=== PATIENT | female | born 1970 | race Caucasian/White ===

== ENCOUNTER 2018-11-17 10:09 | Outpatient (CLI) | payer MEDICAID, SELFPAY ==
--- NOTE | 2018-11-17 10:19 | DI.RAD_ITS ---
SYMPTOMS/DIAGNOSIS: COUGH, R05 PA AND LATERAL CHEST: The heart is normal in size. The lungs are clear. The mediastinal structures and pleura appear intact. CONCLUSION: Normal chest.
== END 2018-11-17 10:29 ==
PROVIDERS: PCP Physician Assistant Medical; Visit Provider Physician Assistant Medical
DX: R05 Cough (principal)
CPT/HCPCS: 71046

== ENCOUNTER 2020-02-15 10:12 | Outpatient (REF) | payer BC, SELFPAY | END 2020-02-15 10:32 | LOC: NCHCN 10:12 | PROVIDERS: PCP Physician Assistant Medical; Visit Provider Nurse Practitioner Family | DX: N39.0 Urinary tract infection, site not specified (principal) | CPT/HCPCS: 87077; 87086; 87186 ==

== ENCOUNTER 2023-04-01 15:23 | Outpatient (REF) | payer BC, SELFPAY ==
[2023-04-01 18:01] LABS: Abs Immature Grans 0.02 10^3/uL (0.0-0.06); Absolute Basophil Count 0.03 10^3/uL (0.0-0.2); Absolute Eosinophil Count 0.06 10^3/uL (0.0-0.7); Absolute Lymphocyte Count 1.59 10^3/uL (1.2-3.4); Absolute Neutrophil Count 3.59 10^3/uL (1.2-6.7); Basophils % 0.5; Eosinophils % 1.1; HCT 42.8 % (36.0-46.0); HGB 14.4 g/dL (11.2-15.7); Immature Grans % 0.4; Lymphocytes % 27.9; MCH 31.4 pg (27.0-33.0); MCHC 33.6 % (32.0-36.0); MCV 93 fL (80-95); MPV 10.6 fL (8.0-11.0); Neutrophils % 63.1; Platelet Count 314 10^3/uL (130-400); RBC 4.58 10^6/uL (3.93-5.22); RDW 13.2 % (11.7-14.6); RDW-SD 44.6 fL; WBC 5.69 10^3/uL (4.4-10.8)
[2023-04-01 18:19] LABS: ALT 31 U/L (14-59); AST 21 U/L (15-37); Albumin 4.4 g/dL (3.4-5.0); Alkaline Phosphatase 107 U/L (46-116); Anion Gap 8.5 mmol/L (3-11); BUN 15 mg/dL (7-18); Bilirubin, Total 0.4 mg/dL (0.2-1.0); CO2 29.5 mmol/L (21.0-32.0); CREATININE 0.9 mg/dL (0.55-1.02); Calcium 9.5 mg/dL (8.5-10.1); Calculated LDL 160 mg/dL (<100); Chloride 102 mmol/L (98-107); Cholesterol 238 mg/dL (<200); Estimated GFR 76.44 (mL/min/1.73m2); Glucose 92 mg/dL (74-106); HDL Cholesterol 53 mg/dL (40-60); Potassium 3.7 mmol/L (3.5-5.1); Sodium 140 mmol/L (136-145); TSH (W/Ref FT4) 4.21 uIU/mL (0.36-3.74); Total Protein 8.6 g/dL (6.4-8.2); Triglyceride 125 mg/dL (<150)
[2023-04-01 18:25] LABS: Hemoglobin A1C 5.3 % (<5.7)
[2023-04-01 18:38] LABS: FREE T4 0.86 ng/dL (0.76-1.46)
[2023-04-03 11:04] LABS: Lyme Ab w Rflx to Lyme Confirm Negative (Negative)
[2023-04-05 20:06] LABS: Anaplasma phagocytophilum Negative (Negative); B. miyamotoi PCR Negative (Negative); Babesia divergens/MO-1 Negative (Negative); Babesia duncani Negative (Negative); Babesia microti Negative (Negative); Ehrlichia chaffeensis Negative (Negative); Ehrlichia ewingii/canis Negative (Negative); Ehrlichia muris eauclairensis Negative (Negative)
== END 2023-04-01 15:24 | disposition home or self-care (01) ==
LOC: NCHCN 15:23
PROVIDERS: PCP Physician Assistant Medical; Visit Provider Nurse Practitioner Family
DX: R21 Rash and other nonspecific skin eruption (principal)
CPT/HCPCS: 80053; 80061; 87798; 83036; 84439; 84443; 85025; 86618

== ENCOUNTER 2024-07-30 22:14 | Emergency (ER) | payer BC, SELFPAY ==
[2024-07-30 22:18] VITALS: BP 153/97; PULSE 96; RESP 18; O2SAT 99
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
--- OUTSIDE RECORDS SUMMARY | 2024-07-30 22:33 | XMS_ITS | Continuity of Care Document ---
Author Organization [facility] Ambulatory Clinics Address [address] [place] [address] Care Team Providers Care Cnc Wood Lathe Operator Name Role Phone MARI KELLOGG PA-C Primary Care Mary bearden Encounter [facility] NBR [id number] Date(s): 05/03/24 - 05/03/24 [facility] Ambulatory Clinics [address] [place] [address]- Encounter Diagnosis Postmenopausal bleeding(Discharge Diagnosis) - 05/03/24 Thickened endometrium(Discharge Diagnosis) - 05/03/24 Hormone replacement therapy (HRT)(Discharge Diagnosis) - 05/03/24 Postmenopausal bleeding(Final) - Abnormal findings on diagnostic imaging of other specified body structures (Final) - Discharge Disposition: Home or Self Care Attending Physician: Kailash Vences MD Allergies, Adverse Reactions, Alerts No Known Medication Allergies Assessment and Plan Extracted from: Title:Office Visit Note Author:Kailash Vences MD D ate:05/03/24 1.??Postmenopausal bleeding? ?N95.0 I did personally review the patient's imaging.?? I discussed??findings with the patient. ??While she has no significant risk factors for hyperplasia??or malignancy??my recommendation would be for endometrial sampling.?? Endometrial polyp??is also in the differential diagnosis??but not clearly needed delineated by the ultrasound.?? It is elected to proceed with hysteroscopy D&C??and Mirena IUD placement.?? I feel that the Mirena IUD may??simplify??HRT ongoing??and can remain in place up to 8 years.?? Patient is agreeable with this plan of care and she is submitted for surgical scheduling. 2.??Thickened endometrium??R93.89 Future Appointments Future Scheduled Tests Radiology* MG [...] Medical Equipment Hormone pellet therapy, prescribed by [facility]. To be taken with the progesterone., Supply, Seeinstructions, # 1 EA, 0 Refill(s) Start Date: 01/01/24 Status: Ordered levothyroxine Unsure of dose, or name of med., 0 Refill(s) Start Date: 01/01/24 Status: Ordered Progesterone (micronized) Progesterone prescribed to be taken with the hormone pellet therapy. Prescribed by [facility]., 0Refill(s) Start Date: 01/01/24 Status: Ordered [...] [Reference Range]: 1 Blood Pressure [90-140/60-90 mmHg] 110/8 0mmHg (05/03/24 9:52 AM) Mean Arterial Pressure, Cuff [65-140 mmH g] 90 mmHg (05/03/24 9:52 AM) Weight 68.0 kg (05/03/24 9:52 AM) Weight Measured (lbs) 149.914 lb (05/03/24 9:52 AM) Weight Dosing 68.000 kg (05/03/24 9:52 AM) Social History Social History Type Response Smoking Status Smoking tobacco use: Never tobacco user;Never entered on: 01/01/24 Sex Female Physician Outpatient Note * Kailash Vences MD: PERFORM Event Display: Office Clinic Note Physician Authored Date: [id number] NORMA DELAROSA :1970 Age:53 years Sex:Female Visit Date:05/03/2024 Primary Care Physician: MARI KELLOGG PA-C Chief Complaint FU with Dr. Vences. PMB on HRT, U/S scheduled for 9am on 05/03. Today still having bright red bleedng, clotty, bleeding can stop for 3hrs, then start back up again. Enough bleeding now to wear a tampon. Per patient medications are the same since last OV. History of Present Illness 53-year-old presents today for follow-up on postmenopausal bleeding.?? As mentioned in my previous note she is currently on HRT with estrogen pellets??and receives??oral micronized progesterone. ??Please refer to previous note for details. ??She was referred for pelvic ultrasound which showed heterogeneous appearance of the endometrial lining??near the fundus??with thickness estimated at 5??to 6 mm.?? A small??intramural uterine fibroid was also noted??which was not in??communication with the lining. Review of Systems As per HPI Physical Exam Vitals & Measurements BP:??110/80?? WT:??68.0??kg?? Deferred Assessment/Plan 1.??Postmenopausal bleeding??N95.0 I did personally review the patient's imaging.?? I discussed??findings with the patient. ??While she has no significant risk factors for hyperplasia??or malignancy??my recommendation would be for endometrial sampling.?? Endometrial polyp??is also in the differential diagnosis??but not clearly needed delineated by the ultrasound.?? It is elected to proceed with hysteroscopy D&C??and Mirena IUDplacement.?? I feel that the Mirena IUD may??simplify??HRT ongoing??and can remain in place up to 8years.?? Patient is agreeable with this plan of care and she is submitted for surgical scheduling. 2.??Thickened endometrium??R93.89 Problem List/Past Medical History Ongoing Acute lateral meniscal tear Bipolar Hormone replacement therapy (HRT) Knee pain, left Migraine Postmenopausal bleeding PTSD - Post-traumatic stress disorder Seasonal allergies Seborrheic dermatitis Thickened endometrium Women's annual routine gynecological examination Historical Procedure/Surgical [...] Cigarette Use: Never. 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 Exercise Home/Environment Lives with Significant other. Living situation: Home/Independent. Sexual Sexually active: Yes. Substance Use Never Tobacco Never tobacco user Tobacco Use:. Never Smokeless Tobacco use:. Family History Alzheimer's disease: Mother. Heart disease: Father. Electronically Signed on 05/03/2024 10:24 EDT Kailash Vences MD Patient Care team information Care Team Personnel Name: Marcy Haque APRN Position: Physician Member Role: Nurse Practitioner Address: Address: [address] [place] [id number] Name: MARI KELLOGG PA-C Position: No Access Member Role: Primary Care Physician Address: Address: [id number] [place] [address] Care Team Related Persons Name: EFRAIN DELAROSA
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
--- OUTSIDE RECORDS SUMMARY | 2024-07-30 22:33 | XMS_ITS | Continuity of Care Document ---
Author Organization [facility] Ambulatory Clinics Address [address] [place] [address] Care Team Providers Care Body Mechanic Apprentice Name Role Phone MARI KELLOGG Primary Care Physicia n Encounter [facility] NBR [id number] Date(s): 08/12/22 - 08/12/22 [facility] Ambulatory Clinics [address] [place] [address]- [place] Discharge Disposition: Home or Self Care Attending Physician: Marcy Haque APRN, Referring Physician: Antoinette Avitia PA-C Social History Social History Type Response Sex Female Patient Care team information Personnel Name: MARI KELLOGG Address: Address: [id number] [place] [address]
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
--- OUTSIDE RECORDS SUMMARY | 2024-07-30 22:33 | XMS_ITS | Continuity of Care Document ---
Author Organization [facility] Address [address] [place] [address] Care Team Providers Care Linen Grader Name Role Phone MARI KELLOGG PA-C Primary Care Mary bearden Encounter [facility] NBR [id number] Date(s): 05/03/24 - 05/03/[address] [address] Encounter Diagnosis Postmenopausal bleeding(Final) - Discharge Disposition: Home or Self Care Attending Physician: Kailash Vences MD Admitting Physician: Kailash Vences MD Referring Physician: Kailash Vences MD Allergies, Adverse Reactions, [...] Medical Equipment Hormone pellet therapy, prescribed by [facility]. To be taken with the progesterone., Supply, Seeinstructions, # 1 EA, 0 Refill(s) Start Date: 01/01/24 Status: Ordered levothyroxine Unsure of dose, or name of med., 0 Refill(s) Start Date: 01/01/24 Status: Ordered Progesterone (micronized) Progesterone prescribed to be taken with the hormone pellet therapy. Prescribed by [facility]., 0Refill(s) Start Date: 01/01/24 Status: Ordered selenium [...] , lymph node removed, benign 6Right hand. Results Radiology Reports * Exam Date Time Procedure Performing Provider Status 05/03/24 9:17 AM US Pelvic Complete aCmila Brooke; Ruddy jaimes (Verified) Notes: (US Pelvic Complete) Reason For Exam: PMB US Pelvic Complete EXAM DESCRIPTION: US Pelvic Complete 05/03/2024 INDICATION: PMB TECHNIQUE: Transabdominal and transvaginal Grayscale and color Doppler ultrasound examination of the pelvis. Static and cine clip images were obtained COMPARISON: None FINDINGS: The uterus measures 4.5 cm x 8.8 cm x 5.8 cm. Small ovoid hypoechoic lesion in the posterior aspect of the uterus suspicious for small fibroid measuring 11 x 8 x 7 mm. The endometrial stripe is heterogeneous and difficult to measure with certainty. Endometrial stripe measures up to 5.9 mm in diameter in the fundus region. Additional ovoid heterogeneous lesion in the vicinity of the endometrium measuring up to 9.8 mm in diameter. Endometrial hyperplasia, polyp or carcinoma can not be excluded. The left ovary measures 0.7 cm x 2 cm x 2.5 cm. The right ovary measures 0.8 cm x 2 cm x 2.5 cm. No solid or cystic ovarian lesion identified on either side. Color-flow analysis demonstrated bilateral ovarian blood flow. No free fluid IMPRESSION: The endometrium is heterogeneous and mildly prominent. Considering provided clinical history of postmenopausal bleeding, this raises the possibility of endometrial hyperplasia, polyp or carcinoma. Small uterine fibroid. Normal ovaries No free fluid JOB #: [id number] Final Signed by: Kailash Rosado MD Signed (Electronic Signature): 05/03/2024 9:23 am Social History Social History Type Response Smoking Status Smoking tobacco use: Never tobacco user;Never entered on: 01/01/24 Sex Female Patient Care team information Care Team Personnel Name: Marcy Haque APRN Position: Physician Member Role: Nurse Practitioner Address: Address: [address] [place] [address]- Name: MARI KELLOGG PA-C Position: No Access Member Role: Primary Care Physician Address: Address: [place] [address]- Care Team Related Persons Name: EFRAIN DELAROSA
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
--- OUTSIDE RECORDS SUMMARY | 2024-07-30 22:33 | XMS_ITS | Continuity of Care Document ---
Author Organization [facility] Address [address] [place] [phone] Care Team Providers Care Airport Baggage Screener Name Role Phone MARI KELLOGG PA-C Primary Care Mary bearden Encounter [facility] NBR [id number] Date(s): 01/01/24 - 01/01/[address] [address]- Discharge Disposition: Home or Self Care Attending Physician: Kailash Vences MD Admitting Physician: Kailash Vences MD Allergies, Adverse Reactions, [...] Medical Equipment Hormone pellet therapy, prescribed by [facility]. To be taken with the progesterone., Supply, Seeinstructions, # 1 EA, 0 Refill(s) Start Date: 01/01/24 Status: Ordered levothyroxine Unsure of dose, or name of med., 0 Refill(s) Start Date: 01/01/24 Status: Ordered Progesterone (micronized) Progesterone prescribed to be taken with the hormone pellet therapy. Prescribed by [facility]., 0Refill(s) Start Date: 01/01/24 Status: Ordered [...] , lymph node removed, benign 5Right hand. Results Radiology Reports * Exam Date Time Procedure Performing Provider Status 01/01/24 11:35 AM MG Mammo Screening Bilateral Abril Nuñez; Auth (Verified) Notes: (MG Mammo Screening Bilateral) Reason For Exam: Screening MG Mammo Screening Bilateral EXAM DESCRIPTION: MG Mammo Screening Bilateral 01/01/2024 INDICATION: SCREENING COMPARISON: 12/26/2022 and 11/26/2021 BREAST DENSITY: There are scattered areas of fibroglandular density. FINDINGS: MLO and CC views were performed with digital breast tomosynthesis. Images were reviewed using computer aided detection. No asymmetry, architectural distortion or suspicious grouping of calcifications to suggest malignancy in either breast. ASSESSMENT: No mammographic evidence of malignancy. Negative. BI-RADS category 1. RECOMMENDATION: Screening mammography in 1 year JOB #: [id number] Final Signed by: Kailash Rosado MD Signed (Electronic Signature): 01/01/2024 11:41 am Social History Social History Type Response Smoking Status Smoking tobacco use: Never tobacco user;Never entered on: 01/01/24 Sex Female Patient Care team information Care Team Personnel Name: Marcy Haque REGIONAL SALES COORDINATOR, Position: Physician Member Role: Nurse Practitioner Address: Address: [address] [place] [address]- Name: MARI KELLOGG PA-C Position: No Access Member Role: Primary Care Physician Address: Address: [address] [address]- Care Team Related Persons Name: EFRAIN DELAROSA
--- OUTSIDE RECORDS SUMMARY | 2024-07-30 22:33 | XMS_ITS | Continuity of Care Document ---
Author Organization [facility] Address [address] [place] [address] Care Team Providers Care Yard General Car Supervisor Name Role Phone MARI KELLOGG PA-C Primary Care Mary bearden Encounter [facility] NBR [id number] Date(s): 01/01/24 - 01/01/24 [facility] Ambulatory [facility]ics [address] [place] [address]- Discharge Disposition: Home Allergies, Adverse Reactions, Alerts [...] Medical Equipment Hormone pellet therapy, prescribed by [facility]. To be taken with the progesterone., Supply, Seeinstructions, # 1 EA, 0 Refill(s) Start Date: 01/01/24 Status: Ordered levothyroxine Unsure of dose, or name of med., 0 Refill(s) Start Date: 01/01/24 Status: Ordered Progesterone (micronized) Progesterone prescribed to be taken with the hormone pellet therapy. Prescribed by [facility]., 0Refill(s) Start Date: 01/01/24 Status: Ordered [...] Physician Member Role: Nurse Practitioner Address: Address: [address] [place] [address]- Name: MARI KELLOGG PA-C Position: No Access Member Role: Primary Care Physician Address: Address: [address] [address]- Care Team Related Persons Name: EFRAIN DELAROSA
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
--- OUTSIDE RECORDS SUMMARY | 2024-07-30 22:34 | XMS_ITS | Continuity of Care Document ---
Author Organization [facility] Ambulatory Clinics Address [address] [place] [address] Care Team Providers Care Wax Molder Name Role Phone MARI KELLOGG Primary Care Physicia n [facility]BR [id number] Date(s): 08/26/22 - 08/26/22 [facility] Ambulatory Clinics [address] [place], [place] [address] Encounter Diagnosis Acute lateral meniscal tear(Discharge Diagnosis) - 08/26/22 Discharge Disposition: Home or Self Care Attending Physician: Miguel Miller MD Allergies, Adverse Reactions, Alerts No Known Medication Allergies Functional Status 08/26/22 Other exposure to Infectious Disease Non e Medications Tylenol 8 Hour 650 mg oral tablet, extended release 1,300 mg = 2 tab, Oral, every 8 hr, PRN as needed for pain, # 24 tab, 0 Refill(s) Start Date: 08/25/22 Status: Ordered Problem List Condition Confirmation Course Effective Dates Status Health St [facility] Informant Acute lateral meniscal tear Confirmed Active Migraine Confirmed Active Knee pain, left Confirmed Active Seasonal allergies Confirmed Active Seborrheic dermatitis Confirmed Active Vital Signs Most recent to oldest [Reference Range]: 1 Peripheral Pulse Rate [60-100 bpm] 74 bp m (08/26/22 9:11 AM) Blood Pressure [90-140/60-90 mmHg] 122/7 8mmHg (08/26/22 9:11 AM) Weight 68.04 kg (08/26/22 9:11 AM) Weight Measured (lbs) 150.002 lb (08/26/22 9:11 AM) Height 165.1 cm (08/26/22 9:11 AM) Height/Length Measured (inches) 65 inch (08/26/22 9:11 AM) BSA Measured 1.77 m2 (08/26/22 9:11 AM) Body Mass Index 24.96 kg/m2 (08/26/22 9:11 AM) Social History Social History Type Response Tobacco Never tobacco user T obacco Use:. Sex Female Physician Outpatient Note * Miguel Miller MD: PERFORM Event Display: Office Clinic Note Physician Authored Date: [id number] NORMA DELAROSA :1970 Age:52 years Sex:Female Visit Date:08/26/2022 Primary Care Physician: MARI KELLOGG Chief Complaint R knee pain History of Present Illness The patient is a 52-year-old female who was??dancing 6 weeks ago??she twisted and felt a pop to herright knee.?? She had a lot of pain initially and difficulty ambulating.?? Shabnam??who??recommend the patient rest for a bit??and then when??patient continues to have pain??suggested an MRI.?? The MRI was denied??and patient although she is somewhat better continues to have difficulty??going up and down stairs??she cannot squat she cannot run??she has pain walking down??steep grades,??she localizes the pain all to the posterior lateral aspect of her knee does point to the??fibular area and hamstring.?? She also does say that she has some occasional numbness??down into her foot. Physical Exam Vitals & Measurements HR:??74??(Peripheral)?? BP:??122/78?? SpO2:??98%?? HT:??165.1??cm?? WT:??68.04??kg?? BMI:??24.96?? BSA:??1.77?? Both knees were examined. The patella position, tracking and mobility were assessed. ??Patella tendon, fat pad, and tibial tubercle were assessed for swelling and tenderness. ??Excursion of the patella both in the medial and lateral planes were appreciated. ?Localized tenderness: With the knee flexed a [id number] palpation was performed. ??Starting with the quad tendon, the knee was examined down along the ileo-tibial band. ??The lateral joint line, the proximal tib-fib joint, Gerdy's tubercle, tibial tubercle, patellar tendon, distal patella, Pez bursa, the medial joint line collateral ligaments, and the retropatellar area. Ligament exam: A full ligament exam was performed. ??Both the cruciate and collateral ligaments were appreciated of the knee. ??Any rotary instability was then checked as patient can tolerate. ??Any scars, previous surgery as well as numbness were noted. ??The popliteal area was checked for masses tenderness and swelling. ?? Exam of the right knee shows a full range of motion there is a very mild lateral joint line tenderness??there is some??mild retropatella tenderness no medial joint line tenderness??no tenderness overthe hamstring??insertion,??no tenderness over the ITB. ??No instability. ? Assessment/Plan 1.??Acute lateral meniscal tear??S83.289A Patient with somewhat atypical lateral knee pain,??is??possible the patient may have sustained a lateral meniscal tear,??but also may be??hamstring tendinitis??or even possibly peroneal nerve??subluxation,??my plan now is to send??the patient to physical therapy for the next month, I will see her back if she still having pain I would get an MRI if she has more neurologic symptoms might also send her for EMGs. Problem List/Past Medical History Ongoing Acute lateral meniscal tear Knee pain, left Migraine Seasonal allergies Seborrheic dermatitis Historical No qualifying data Medications Tylenol 8 Hour 650 mg oral tablet, extended release, 1300 mg= 2 tab, Oral, every 8 hr, PRN Allergies No Known Medication Allergies Social History Electronic Cigarette/Vaping Electronic Cigarette Use: Never. Tobacco Never tobacco user Tobacco Use:. Electronically Signed on 08/26/22 09:53 AM Miguel Miller MD Patient Care team information Care Team Personnel Name: Marcy Shabnam BARAHONA, Position: Physician Member Role: Nurse Practitioner Address: Address: [address] [place] [address] Name: MARI KELLOGG Position: No Access Member Role: Primary Care Physician Address: Address: [address] [place], [place] [id number] [place] [address]
--- OUTSIDE RECORDS SUMMARY | 2024-07-30 22:34 | XMS_ITS | Clinical Summary ---
Author Organization [facility] Address [address] [place] [address] Care Team Providers Care Optical Mechanic Apprentice Name Role Phone Unknown, Provider Primary Care Provider [phone] Encounters Date Type Department Care Team Description 05/30/2024 Lab Requisition [facility] - [place] [facility] [address] [place] [address] Kailash Vences MD Hormone replacement therapy; Abnormal findings on diagnostic imaging of other specified body structures; Postmenopausal bleeding from Last 3 Months Social History Tobacco Use Types Packs/Day Years Used Date Smoking Tobacco: Never Assessed Sex and Gender Information Value Date Recorded Sex Assigned at Not on file Gender Identity Not on file Sexual Orientation Not on file Plan of Treatment Health Maintenance Due Date Last Done Comments Hepatitis C Screen 1970 Hepatitis B Vaccine (1 of 3 - 19+ 3-dose series) 08/18 COVID-19 Vaccine (2022- season) 2023 Procedures Procedure Name Priority Date/Time Associated Diagnosis Comments SURGICAL PATHOLOGY Today 05/30/2024 7: 34 EDT Hormone replacement therapy Abnormal findings on diagnostic imaging of other specified body structures Postmenopausal bleeding from Last 3 Months Results * SURGICAL PATHOLOGY (05/30/2024 7:34 EDT) Note to Patient The following pathology results have been interpreted by your pathologist and may be available to you before your health provider has had the opportunity to review them. Please allow time for your provider to receive these results and explore management options, if applicable. 06/02/2024 9:32 EDT [facility] Final Diagnosis A. ENDOMETRIUM, CURETTAGE: - Fragments suggestive of benign endometrial polyp. - Disordered proliferative endometrium. 06/02/2024 9:32 EDT [facility] Attestation There was significant resident/fellow involvement in the diagnostic evaluation of this case. By the signature below, the attending physician certifies that they have personally conducted a gross and/or microscopic examination of the described specimens and rendered or confirmed the above diagnosis. 06/02/2024 9:32 [facility] at 0932 Clinical History Clinical diagnosis code: N95.0, R93.89, Z79.890 06/02/2024 9:32 EDT [facility] Gross Description A. Received in formalin labelled with proper patient identification (initials S, H) and A. Endometrial curettings is an aggregate of brown soft tissues (1.8 x 1.4 x 0.1 cm). Entirely submitted in A1. Antoinette Blankenship 05/31/2024 13:55 06/02/2024 9:32 T [facility] Resident/Pascual w: Siobhan Bess MD 06/02/2024 9:32 EDT [facility] Performing Lab [facility] 06/02/2024 9:32 [facility] Scanned Images 06/02/2024 9:32 [facility] Tissue ENDOMETRIAL STRUCTURE / Unknown 05/30/2024 7:34 EDT 05/30/2024 21:20 EDT Kailash Vences MD PATHOLOGY ORDERABLES [facility] [address] [place] [address] from Last 3 Months Smires, Nathalia L Personal/Famil y Self 1970 [address] [facility] [place] [address] Smires, Nathalia L Personal/Famil y Self 1970 [address] [place] [address] Smires, Nathalia L Personal/Famil y Self 1970 [address] [facility] [place] [address] Care Teams Optical Mechanic Apprentice Relationship Specialty Start Date End Date Unknown, Provider, PCP - General 05/19/24
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
--- OUTSIDE RECORDS SUMMARY | 2024-07-30 22:34 | XMS_ITS | Referral Summary ---
Author Organization [facility] Address [address] [place] [address] Care Team Providers Care Parking Ramp Attendant Name Role Phone Unknown, Provider Primary Care Provider [phone] Encounters Date Type Department Care Team Description 05/30/2024 Lab Requisition [facility] Pathology & Laboratory Medicine - [facility] [address] [place] [address] Kailash Vencse MD Hormone replacement therapy; Abnormal findings on diagnostic imaging of other specified body structures; Postmenopausal bleeding from Last 3 Months Social History Tobacco Use Types Packs/Day Years Used Date Smoking Tobacco: Never Assessed Sex and Gender Information Value Date Recorded Sex Assigned at Not on file Gender Identity Not on file Sexual Orientation Not on file Plan of Treatment Not on file Procedures Procedure Name Priority Date/Time Associated Diagnosis [...] management options, if applicable. 06/02/2024 9:32 EDT [facility] Final Diagnosis A. ENDOMETRIUM, CURETTAGE: - Fragments suggestive of benign endometrial polyp. - Disordered proliferative endometrium. 06/02/2024 9:32 T [facility] Attestation There was significant resident/fellow involvement in the diagnostic evaluation of this case. By the signature below, the attending physician certifies that they have personally conducted a gross and/or microscopic examination of the described specimens and rendered or confirmed the above diagnosis. 06/02/2024 9:32 EDT [facility] at 0932 Clinical History Clinical diagnosis code: N95.0, R93.89, Z79.890 06/02/2024 9:32 EDT [facility] Gross Description A. Received in formalin labelled with proper patient identification (initials S, H) and A. Endometrial curettings is an aggregate of brown soft tissues (1.8 x 1.4 x 0.1 cm). Entirely submitted in A1. Antoinette Krzysztof 05/31/2024 13:55 06/02/2024 9:32 EDT [facility] Resident/Pascual w: Siobhan Bess MD 06/02/2024 9:32 EDT [facility] Performing Lab [facility] 06/02/2024 9:32 EDT [facility] Scanned Images 06/02/2024 9:32 EDT [facility] Tissue ENDOMETRIAL STRUCTURE / Unknown 05/30/2024 7:34 EDT 05/30/2024 21:20 EDT Kailash eVnces MD PATHOLOGY ORDERABLES [facility] [address] [place] [address] from Last 3 Months Smirdelilah, Nathalia L Personal/Famil y Self 1970 [address] [address] Smires, Nathalia L Personal/Famil y Self 1970 [address] [place] [address] Smirdelilah, Nathalia L Personal/Famil y Self 1970 [address] [address] Smirdelilah, Nathalia L Personal/Famil y Self 1970 [address] [place] [address] Care Teams Parking Ramp Attendant Relationship Specialty Start Date End Date Unknown, Provider, PCP - General 05/19/24
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
--- OUTSIDE RECORDS SUMMARY | 2024-07-30 22:34 | XMS_ITS | Continuity of Care Document ---
Author Organization [facility] Address [address] [place] [id number] Care Team Providers Care Senior C Developer Name Role Phone MARI KELLOGG PA-C Primary Care Mary bearden Encounter [facility] NBR [id number] Date(s): 07/30/23 - 07/30/[address] [address]- Discharge Disposition: Home or Self Care Attending Physician: MARI KELLOGG PA-C Admitting Physician: MARI KELLOGG PA-C Referring Physician: MARI KELLOGG PA-C Allergies, Adverse Reactions, Alerts No Known Medication [...] 4right side , lymph node removed, benign Social History Social History Type Response Tobacco Never tobacco user T obacco Use:. Sex Female Patient Care team information Care Team Personnel Name: Marcy Haque GREEN COFFEE BLENDER, Position: Physician Member Role: Nurse Practitioner Address: Address: [address] [place] [address]- Name: MARI KELLOGG PA-C Position: No Access Member Role: Primary Care Physician Address: Address: [address] [address]- Care Team Related Persons Name: EFRAIN DELAROSA
--- OUTSIDE RECORDS SUMMARY | 2024-07-30 22:34 | XMS_ITS | Encounter Summary ---
Author Organization [facility] Address [address] [place] [address] Care Team Providers Care French Translator Name Role Phone Unknown, Provider Primary Care Provider [phone] Encounter Details Date Type Department Care Team (Late st Contact Info) Description 04/02/2023 Lab Requisition [facility] Pathology & Laboratory Medicine - [facility] [address] [place] [address] Outr Resulting Lab, Provider Social History Tobacco Use Types Packs/Day Years Used Date Smoking Tobacco: Never Assessed Sex and Gender Information Value Date Recorded Sex Assigned at Not on file Gender Identity Not on file Sexual Orientation Not on file documented as of this encounter Plan of Treatment Not on file documented as of this encounter Procedures Procedure Name Priority Date/Time Associated Diagnosis Comments LYME AB Routine 04/01/2023 15:05 EDT documented in this encounter Results * LYME AB (04/01/2023 15:05 EDT) Lyme Ab Negative Negative 04/03/2023 10:59 EDT [facility] Blood VENOUS BLOOD / Unknown 04/01/2023 15:05 EDT 04/02/2023 18:06 EDT Provider Outr Resulting Lab IMMUNOLOGY A ND SEROLOGY ORDERABLES [facility] [address] [place] [address] documented in this encounter Visit Diagnoses Not on filedocumented in this encounter Care Teams French Translator Relationship Specialty Start Date End Date Unknown, ProviderMD PCP - General 05/19/24 documented as of this encounter
--- OUTSIDE RECORDS SUMMARY | 2024-07-30 22:34 | XMS_ITS | Encounter Summary ---
Author Organization [facility] Address [address] [place] [address] Care Team Providers Care Personnel Generalist Manager Name Role Phone Unknown, Provider Primary Care Provider [phone] Encounter Details Date Type Department Care Team (Late st Contact Info) Description 05/30/2024 Lab Requisition [facility] Pathology & Laboratory Medicine - [facility] [address] [place] [address] Kailash Vences MD [address] [place] [address] Hormone replacement therapy; Abnormal findings on diagnostic imaging of other specified body structures; Postmenopausal bleeding Social History Tobacco Use Types Packs/Day Years [...] of other specified body structures Postmenopausal bleeding documented in this encounter Results * SURGICAL PATHOLOGY (05/30/2024 7:34 EDT) Note to Patient The following pathology results have been interpreted by your pathologist and may be available to you before your health provider has had the opportunity to review them. Please allow time for your provider to receive these results and explore management options, if applicable. 06/02/2024 9:32 EDT [facility] Final Diagnosis A. ENDOMETRIUM, CURETTAGE: - Fragments suggestive of benign endometrial polyp. - Disordered proliferative endometrium. 06/02/2024 9:32 [facility] Attestation There was significant resident/fellow involvement in the diagnostic evaluation of this case. By the signature below, the attending physician certifies that they have personally conducted a gross and/or microscopic examination of the described specimens and rendered or confirmed the above diagnosis. 06/02/2024 9:32 [facility] at 0932 Clinical History Clinical diagnosis code: N95.0, R93.89, Z79.890 06/02/2024 9:32 [facility] Gross Description A. Received in formalin labelled with proper patient identification (initials S, H) and A. Endometrial curettings is an aggregate of brown soft tissues (1.8 x 1.4 x 0.1 cm). Entirely submitted in A1. Antoinette 05/31/2024 13:55 06/02/2024 9:32 [facility] Resident/Pascual w: Siobhan Bess MD 06/02/2024 9:32 [facility] Performing Lab [facility] 06/02/2024 9:32 [facility] Scanned Images 06/02/2024 9:32 [facility] Tissue ENDOMETRIAL STRUCTURE / Unknown 05/30/2024 7:34 EDT 05/30/2024 21:20 EDT Kailash Vences MD PATHOLOGY ORDERABLES Performing Organization Address City/State/[facility] Co de Phone Number [facility] [address] [place] [phone] documented in this encounter Visit Diagnoses Diagnosis Hormone replacement therapy Need for prophylactic hormone replacement therapy (postmenopausal) Abnormal findings on diagnostic imaging of other specified body structures Postmenopausal bleeding documented in this encounter Care Teams Personnel Generalist Manager Relationship Specialty Start Date End Date Unknown, Provider, PCP - General 05/19/24 documented as of this encounter
[2024-07-30] MEDS: Lidocaine/Epinephri/Tetracaine Topical Gel 3 ML TP (22:35)
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
[2024-07-30] MEDS: Acetaminophen 325 MG TAB 650 MG PO (22:55)
--- NOTE | 2024-07-30 23:52 | DI.CT_ITS ---
Exam(s) CT FACIAL WO EXAM: CT FACIAL WO CLINICAL HISTORY: fall on chin, jaw pain. TECHNIQUE: Imaging Protocol: Axial computed tomography images with coronal and sagittal reformatted images were created and reviewed. No IV contrast COMPARISON: No exams were available for comparison FINDINGS: MAXILLOFACIAL CT SCAN: There is no evidence of facial fractures nor fluid the visualized paranasal sinuses. There is no nikki dence of orbital blowout fracture. Mandible appears intact. No fractures evident. Nasal bone is intact. Zygomatic arches are intact. The pterygoid plates are intact. No skull base fracture. IMPRESSION: No evidence of facial bone fractures nor orbital fractures. RADIATION DOSE DELIVERED: 434.22mGy.cm Total DLP DATA REPOSITORY: All CT scans at this facility are submitted to the National Radiology Data Registry (NRDR) Dose Index Registry (DIR) with the [employer] ([employer]). RADIATION OPTIMIZATION: All CT scans at this facility use at least one of these dose optimization te chniques: automated exposure control; mA and/or kV adjustment per patient size (includes targeted exa ms where dose is matched to clinical indication); or iterative reconstruction.
--- NOTE | 2024-07-30 23:54 | W.EDPROG ---
Date of service: 07/30/24 Time of Service: 23:40 Medical Decision Making This patient was signed out to me. Please see previous notes for H&P and initial eval. In brief, 53yo F presenting with chin laceration, fell forward while dancing while intoxicated. Laceration repaired. Pt subsquently reported feeling like her teeth were misaligned and so CT face was ordered. Signed out pending CT. CT independently reviewed; no large displaced fracture on my view. Subsequently called to bedside as patient stated she wanted to leave AMA. [facility] estimating and additional 2 hours for read. I advised Ms. Erwin that I would like her to stay and await the radiology reading so that we could arrange appropriate followup if necessary as she may need to see OMFS; she verbalized understanding of my concerns and stated that should would prefer to go home and not remain in the ED for any further time this evening. She is well appearing, no respiratory distress, managing secretions. She has decision making capacity. She states she will followup with her primary care doctor and will reach out to [facility] tomorrow when she is awake to followup up on her imaging results. Provided with written discharge instructions. Left AMA. At 0215 after pt had left department, CT read as below, no acute fractures. Imaging Data Radiologic Study: Imaging: CT Scan Radiologist's impression: IMPRESSION: No acute facial fracture is seen Quality:[facility] Health Related Social Needs: No Data to Display Sign Out Sign Out Data: Sign Out Comment: pending CT facial bones to eval for mandibular fracture, lac repaired, tdap boosted Last updated by Devin Nascimento MD at 07/30/24 23:35 Discharge Plan Disposition Patient Disposition: Against Medical Advice Condition: Stable Discharge Details Clinical Impression: Facial injury, Chin laceration Primary Care Provider: Jessica Miranda ED Provider: Karla Xiong Home Meds and New Rx's Prescriptions: Continued Aimovig Autoinjector 140 mg/mL auto-injector 140 mg subcut QMONTH riboflavin (vitamin B2) [Vitamin B-2] 100 MG tablet 100 mg PO DAILY progesterone micronized [Prometrium] 100 mg capsule 100 mg PO DAILY Discharge Instructions Instructions: Laceration Repair With Stitches ED, Jaw Fracture ED Additional Instructions: You have left against medical advice. We are not sure whether or not you broke your jaw. Please return to the emergency department if you change your mind. Otherwise call your primary care doctor as soon as possible to schedule an appointment for within the next 48 hours to followup on your visit here. At that visit mention your blood pressure which is high here in the ED. Return to the emergency department for new or worsening symptoms including worsening pain, inability to move your jaw, difficultly eating, difficulty swallowing, or if you have any other concerns. Referrals: Jessica Miranda PA [Primary Care Provider] - Discharge Data Discharge Date/Time-TO BE ENTERED AT DEPARTURE: 07/31/24 00:32
[2024-07-31 00:32] VITALS: BP 110/82; PULSE 97; RESP 16; O2SAT 96
--- NOTE | 2024-07-31 02:14 | DI.[facility]AD_ITS ---
PROCEDURE INFORMATION: Exam: CT Maxillofacial Without Contrast; Mandible Exam date and time: 07/30/2024 11:44 PM Age: 53 years old Clinical indication: Injury or trauma; Blunt trauma (contusions or hematomas); Jaw and other: Chin; Not specified; Injury date: 07/30/24; Patient HX: Fall on chin, jaw pain TECHNIQUE: Imaging protocol: Computed tomography maxillofacial without contrast. Exam focused on the mandible. Radiation optimization: All CT scans at this facility use at least one of these dose optimization techniques: automated exposure control; mA and/or kV adjustment per patient size (includes targeted exams where dose is matched to clinical indication); or iterative reconstruction. COMPARISON: CT HEAD WITHOUT CONTRAST 03/25/2015 11:53 AM FINDINGS: Paranasal sinuses: The paranasal sinuses appear well aerated. No air-fluid levels are seen. Orbital cavities: The globes and intraorbital structures appear grossly intact. Bones: No acute facial fracture is seen. Mastoid air cells: The visualized mastoid air cells appear well aerated. Auditory system: The middle ear cavities appear clear. Soft tissues: No gross soft tissue hematoma is seen in the face. Nasal cavity: There is rightward deviation of the nasal septum. IMPRESSION: No acute facial fracture is seen. Dictated and Authenticated by: Mohit Castro MD. Ordering:MASOOD Beltran MD
== END 2024-07-31 00:32 | disposition left against medical advice (07) ==
PROVIDERS: Emergency Provider Student in an Organized Health Care Education/Training Program; PCP Physician Assistant Medical
DX: S01.81XA Laceration without foreign body of other part of head, initial encounter (principal); W01.0XXA Fall on same level from slipping, tripping and stumbling without subsequent striking against object, initial encounter; Y93.01 Activity, walking, marching and hiking; Y92.89 Other specified places as the place of occurrence of the external cause; Z23 Encounter for immunization
CPT/HCPCS: 00123; 12001; 90471; 90715; 99284; 70486; 99283

== ENCOUNTER 2025-04-05 15:56 | Outpatient (REF) | payer BC, SELFPAY ==
[2025-04-05 21:03] LABS: Hemoglobin A1C 5.4 % (<5.7)
[2025-04-05 21:15] LABS: Calculated LDL 139 mg/dL (<100); Cholesterol 225 mg/dL (<200); HDL Cholesterol 54 mg/dL (>or=50); TSH 1.06 uIU/mL (0.36-3.74); Triglyceride 161 mg/dL (<150)
[2025-04-05 21:49] LABS: FREE T4 0.74 ng/dL (0.76-1.46)
== END 2025-04-05 15:57 | disposition home or self-care (01) ==
LOC: NCHCN 15:56
PROVIDERS: PCP Physician Assistant Medical; Visit Provider Physician Assistant Medical
DX: Z13.6 Encounter for screening for cardiovascular disorders (principal); Z13.1 Encounter for screening for diabetes mellitus; R79.89 Other specified abnormal findings of blood chemistry
CPT/HCPCS: 80061; 83036; 84439; 84443

== ENCOUNTER 2025-06-16 14:58 | Outpatient (REF) | payer BC, SELFPAY ==
[2025-06-16 16:22] LABS: TSH 1.11 uIU/mL (0.36-3.74)
== END 2025-06-16 14:59 | disposition home or self-care (01) ==
LOC: NCHCN 14:58
PROVIDERS: PCP Physician Assistant Medical; Visit Provider Physician Assistant Medical
DX: E03.9 Hypothyroidism, unspecified (principal)
CPT/HCPCS: 84439; 84443